=== PATIENT | male | born 1995 | race Caucasian/White ===

== ENCOUNTER 2023-09-27 11:47 | Emergency (ER) | payer OTHER ==
[2023-09-27 12:11] VITALS: BP 111/73; PULSE 82; RESP 20; TEMP 98.7; BMI 16.9
== END 2023-09-27 13:46 | disposition home or self-care (01) ==
LOC: JERFT 11:47
DX: S62.306D Unspecified fracture of fifth metacarpal bone, right hand, subsequent encounter for fracture with routine healing (principal); M79.641 Pain in right hand; M79.89 Other specified soft tissue disorders; X58.XXXD Exposure to other specified factors, subsequent encounter; Y93.9 Activity, unspecified; Y92.9 Unspecified place or not applicable
CPT/HCPCS: 99283-25